=== PATIENT | male | born 1985 | race American Indian/Alaskan Native ===

== ENCOUNTER 2021-02-22 09:24 | Emergency (ER) | payer SELFPAY ==
[2021-02-22 09:47] VITALS: BP 142/94
--- NOTE | 2021-02-22 10:44 | Emergency Department Report ---
ED Male HPI - General Chief complaint: Urogenital-Male Stated complaint: BURN WHEN PEE, SMALL LUMP IN GROIN Time Seen by Provider: 02/22/21 10:01 Source: patient Mode of arrival: Ambulatory Limitations: No Limitations - History of Present Illness Initial comments: Patient is a 35-year-old male presents emergency room complaints of dysuria that began 2 weeks ago. He has associated penile discharge. He states that now he has developed pain in his groin and he states that he has swelling present in his groin. He states [facility] and reports that he was given a shot of medication and 2 pills. He states that when he went home he vomited the pills and so [facility] and they wrote him for doxycycline twice a day for a week. He states that he did not finish the prescription. He states he is having some abdominal discomfort. He denies any fever, urinary retention, hematuria. He has not had any episodes of vomiting since after he took the pills the first time. No past medical history. He reports that he is allergic to sulfa drugs. - Related Data Home Medications Medication Instructions Recorded Confirmed Last Taken No Known Home Medications [No 02/22/21 02/22/21 Unknown Reported Home Medications] Allergies Allergy/AdvReac Type Severity Reaction Status Date / Time No Known Allergies Allergy Unverified 02/22/21 09:50 ED Review of Systems ROS: Stated complaint: BURN WHEN PEE, SMALL LUMP IN GROIN Other details as noted in HPI Comment: All other systems reviewed and negative ED Past Medical Hx - Social History Smoking Status: Never Smoker Substance Use Type: None - Medications Home Medications: Home Medications Medication Instructions Recorded Confirmed Last Taken Type No Known Home Medications [No 02/22/21 02/22/21 Unknown History Reported Home Medications] ED Physical Exam - General Limitations: No Limitations General appearance: alert, in no apparent distress - Head Head exam: Present: atraumatic, normocephalic - Eye Eye exam: Present: normal appearance - ENT ENT exam: Present: mucous membranes moist - GI/Abdominal GI/Abdominal exam: Present: soft. Absent: distended, tenderness, guarding, rebound, rigid - exam: Present: other (major assembler: katerina garrison, 3 cm left inguinal LAD, 1 cm right inguinal LAD, no erythema, no scrotal edema, no testicular ttp, normal testicular lie, normal cremasteric reflex) - Neurological Exam Neurological exam: Present: alert, oriented X3 - Psychiatric Psychiatric exam: Present: normal affect, normal mood - Skin Skin exam: Present: warm, dry ED Course Vital Signs 02/22/21 09:30 Temperature 98.7 F Pulse Rate 67 Respiratory 17 Rate Blood Pressure 142/94 O2 Sat by Pulse 99 Oximetry ED Medical Decision Making - Radiology Data Radiology results: report reviewed Ordering Physician: GERALDINE WYNNE Date of Service: 02/22/21 Procedure(s): US testicular doppler comp Accession Number(s): [id number] cc: GERALDINE WYNNE ULTRASOUND SCROTUM INDICATION / CLINICAL INFORMATION: groin pain, enlarged inguinal LAD. COMPARISON: None available. FINDINGS -- RIGHT TESTIS: Size = 4.0 x 2.1 x 2.8 cm. - Appearance: No significant abnormality. - Cyst or Mass: None. - Color Doppler Flow: No significant abnormality. EPIDIDYMIS: 4 mm epididymal cyst. HYDROCELE: None. VARICOCELE: None demonstrated. FINDINGS -- LEFT TESTIS: Size = 3.6 x 1.9 x 2.7 cm. - Appearance: No significant abnormality. - Cyst or Mass: None. - Color Doppler Flow: No significant abnormality. EPIDIDYMIS: 3 mm epididymal cyst. HYDROCELE: None. VARICOCELE: None demonstrated. ADDITIONAL FINDINGS: Multiple enlarged right inguinal lymph nodes, largest measuring 2.2 cm in short axis. There is abnormal morphology with lack of normal fatty hilum within the largest lymph node and cortical thickening of other prominent lymph nodes in the right inguinal region. IMPRESSION: 1. Multiple enlarged abnormal morphology lymph nodes in the right inguinal region. This is nonspecific and could reflect lymphadenitis, though malignant etiologies are not excluded. Recommend clinical correlation and consideration for tissue sampling, as clinically indicated. 2. No significant abnormality of the testicles. Signer Name: Promise Cooley MD Signed: 02/22/2021 11:41 AM Workstation Name: [id number] Transcribed By: KIKE Dictated By: PROMISE COOLEY MD Electronically Authenticated By: PROMISE COOLEY MD Signed Date/Time: 02/22/21 1141 DD/ 1137 TD/TT: - Medical Decision Making Patient is a 35-year-old male presents emergency room complaints of dysuria that began 2 weeks ago. He has associated penile discharge. He states that now he has developed pain in his groin and he states that he has swelling present in his groin. He states that [facility] with [facility] and reports that he was given a shot of medication and 2 pills. He states that when he went home he vomited the pills and so [facility] and they wrote him for doxycycline twice a day for a week. He states that he did not finish the prescription. He states he is having some abdominal discomfort. He denies any fever, urinary retention, hematuria. He has not had any episodes of vomiting since after he took the pills the first time. No past medical history. He reports that he is allergic to sulfa drugs. Vitals are stable. On exam:major assembler: katerina garrison, 3 cm left inguinal LAD, 1 cm right inguinal LAD, no erythema, no scrotal edema, no testicular ttp, normal testicular lie, normal cremasteric reflex. UA without evidence of significant UTI. Syphilis is positive. Scrotal ultrasound: 1. Multiple enlarged abnormal morphology lymph nodes in the right inguinal region. This is nonspecific and could reflect lymphadenitis, though malignant etiologies are not excluded. Recommend clinical correlation and consideration for tissue sampling, as clinically indicated. 2. No significant abnormality of the testicles. Lymph nodes could be related to syphilis infection. Patient was given penicillin IM while in the emergency department. Discussed all results with patient and discussed the importance of outpatient follow-up. Advised patient Please follow-up with the clinic or health apartment for full STD panel. Please follow-up with your primary care doctor. Please make sure to have every partner tested and treated as well. Avoid sexual intercourse. Return to emergency room for any new or worsening symptoms. Critical care attestation.: If time is entered above; I have spent that time in minutes in the direct care of this critically ill patient, excluding procedure time. ED Disposition Clinical Impression: Syphilis, LAD (lymphadenopathy) Groin pain Qualifiers: Laterality: unspecified laterality Qualified Code(s): R10.30 - Lower abdominal pain, unspecified Disposition: HOME / SELF CARE / HOMELESS Is pt being admited?: No Does the pt Need Aspirin: No Condition: Stable Instructions: Syphilis Additional Instructions: Please follow-up with the clinic or health apartment for full STD panel. Please follow-up with your primary care doctor. Please make sure to have every partner tested and treated as well. Avoid sexual intercourse. Return to emergency room for any new or worsening symptoms. Referrals: PRIMARY CARE,MD [Primary Care Provider] - 3-[address] [facility] [Outside] - 3-5 Days Time of Disposition: 14:32 Print Language: UKRAINIAN
--- NOTE | 2021-02-22 11:51 | Ultrasound Report ---
ULTRASOUND SCROTUM INDICATION / CLINICAL INFORMATION: groin pain, enlarged inguinal LAD. COMPARISON: None available. FINDINGS -- RIGHT TESTIS: Size = 4.0 x 2.1 x 2.8 cm. - Appearance: No significant abnormality. - Cyst or Mass: None. - Color Doppler Flow: No significant abnormality. EPIDIDYMIS: 4 mm epididymal cyst. HYDROCELE: None. VARICOCELE: None demonstrated. FINDINGS -- LEFT TESTIS: Size = 3.6 x 1.9 x 2.7 cm. - Appearance: No significant abnormality. - Cyst or Mass: None. - Color Doppler Flow: No significant abnormality. EPIDIDYMIS: 3 mm epididymal cyst. HYDROCELE: None. VARICOCELE: None demonstrated. ADDITIONAL FINDINGS: Multiple enlarged right inguinal lymph nodes, largest measuring 2.2 cm in short axis. There is abnormal morphology with lack of normal fatty hilum within the largest lymph node and cortical thickening of other prominent lymph nodes in the right inguinal region. IMPRESSION: 1. Multiple enlarged abnormal morphology lymph nodes in the right inguinal region. This is nonspecifi c and could reflect lymphadenitis, though malignant etiologies are not excluded. Recommend clinical c orrelation and consideration for tissue sampling, as clinically indicated. 2. No significant abnormality of the testicles. Signer Name: Mehul Cooley MD Signed: 02/22/2021 11:41 AM Workstation Name: [id number]
[2021-02-22] MEDS ORDERED: PENICILLIN G BENZATHINE 1.2 MILLION UNIT/2 ML INJ IM ONE (13:40)
[2021-02-22 14:04] LABS: Bacteria,Urine 1+ /HPF (Negative); Bilirubin,Urine NEG (Negative); Blood,Urine SM (Negative); Color,Urine Yellow (Yellow); Mucus,Urine FEW /HPF; Protein,Urine <15 mg/dL mg/dL (Negative)
== END 2021-02-22 15:50 | disposition home or self-care (01) ==
LOC: ED 09:24
DX: A53.9 Syphilis, unspecified (principal); R59.1 Generalized enlarged lymph nodes; R10.30 Lower abdominal pain, unspecified; Z79.899 Other long term (current) drug therapy
CPT/HCPCS: 36415; 81001; 86592; 86593; 93975; 96372; 99284; J0561